=== PATIENT | male | born 1995 | race African-American/Black ===

== ENCOUNTER 2019-02-09 23:40 | Emergency (ER) | payer SELFPAY ==
[2019-02-09 23:49] VITALS: BP 137/78; PULSE 86; TEMP 98.7; BMI 27.1
[2019-02-10] MEDS ORDERED: DIPHTH,PERTUSS(ACELL),TET 0.5 ML DISP.SYRIN IM ONE ×2 (01:23→02:03)
--- NOTE | 2019-02-10 01:23 | PDOC ---
History of Present Illness - General Chief Complaint: Laceration Stated Complaint: EYE LACERATION Time Seen by Provider: 02/10/19 01:20 History Source: Patient - History of Present Illness Initial Comments: 02/10/19 01:20 23 year old male s/p laceration to left side of face proximal to the left eye lid. denies headache loc, nausea, vomiting, vision changes. last tetanus unknown 02/10/19 01:22 Past History - Past Medical History Allergies/Adverse Reactions: Allergies Allergy/AdvReac Type Severity Reaction Status Date / Time No Known Allergies Allergy Verified 02/10/19 02:12 COPD: Yes - Suicide/Smoking/Psychosocial Hx Smoking History: Unknown if ever smoked Review of Systems - Review of Systems Able to Perform ROS?: Yes Is the patient limited Uzbek proficient: No *Physical Exam - Vital Signs Last Vital Signs Temp Pulse Resp BP Pulse Ox 98.7 F 86 20 137/78 98 02/09/19 23:45 02/09/19 23:45 02/09/19 23:45 02/09/19 23:45 02/09/19 23:45 - Physical Exam General Appearance: Yes: Appropriately Dressed HEENT: positive: Other (1 cm laceration to left side of fACE PROXIMAL TO LEFT EYEBROW) Procedures - Consent Consent obtained: Verbal - Laceration/Wound Repair Left Face Wound Length: to 2.5 cm Wound Explored: clean Wound's Depth, Shape: irregular Irrigated w/ Saline: Yes Betadine Prep: Yes Anesthesia: 1% Lidocaine Amount of Anesthetic (ccs): 2 Wound Debrided: minimal Wound Repaired With: Sutures Suture Size/Type: 6:0 Number of Sutures: 4 Layer Closure: No Sterile Dressing Applied: Yes (bacitracin and sterile dressing applied) Progress Note - Progress Note Progress Note: A: facial laceration P; see procedure note boostrix *DC/Admit/Observation/Transfer Diagnosis at time of Disposition: Laceration of face without complication Qualifiers: Encounter type: initial encounter Qualified Code(s): S01.81XA - Laceration without foreign body of other part of head, initial encounter - Discharge Dispostion Disposition: HOME - Referrals Referrals: Hiram Perrin MD [Primary Care Provider] - - Patient Instructions Printed Discharge Instructions: DI for Laceration Repair Additional Instructions: Keep area clean dry and intact Keep dressing on until tomorrow If any increased bleeding through the dressing return immediately to emergency department Keep area clean dry and intact bacitracin x3 days, then let it dry out Please return in 5 days for suture removal. Please return immediately to emergency department with any increased redness, swelling, signs of infection - Post Discharge Activity Forms/Work/School Notes: Back to Work
--- NOTE | 2019-02-10 01:25 | PDOC ---
*Physical Exam - Vital Signs Last Vital Signs Temp Pulse Resp BP Pulse Ox 98.7 F 86 20 137/78 98 02/09/19 23:45 02/09/19 23:45 02/09/19 23:45 02/09/19 23:45 02/09/19 23:45 Medical Decision Making - Medical Decision Making 02/10/19 01:25 Patient seen by the advanced practice provider under my direct supervision. Ancillary testing reviewed as necessary. I agree with plan as outlined by the advanced practice provider. *DC/Admit/Observation/Transfer Diagnosis at time of Disposition: Laceration of face without complication Qualifiers: Encounter type: initial encounter Qualified Code(s): S01.81XA - Laceration without foreign body of other part of head, initial encounter - Discharge Dispostion Disposition: HOME Condition at time of disposition: Stable - Referrals Referrals: Hiram Perrin MD [Primary Care Provider] - - Patient Instructions Printed Discharge Instructions: DI for Laceration Repair Additional Instructions: Keep area clean dry and intact Keep dressing on until tomorrow If any increased bleeding through the dressing return immediately to emergency department Keep area clean dry and intact bacitracin x3 days, then let it dry out Please return in 5 days for suture removal. Please return immediately to emergency department with any increased redness, swelling, signs of infection - Post Discharge Activity Forms/Work/School Notes: Back to Work
== END 2019-02-10 02:28 | disposition home or self-care (01) ==
LOC: JER 23:40
PROC: 3E0234Z Introduction of Serum, Toxoid and Vaccine into Muscle, Percutaneous Approach (ICD-10-PCS; principal; 2019-02-09)
PROC: 0HQ1XZZ Repair Face Skin, External Approach (ICD-10-PCS; 2019-02-09)
DX: S01.112A Laceration without foreign body of left eyelid and periocular area, initial encounter (principal); W22.8XXA Striking against or struck by other objects, initial encounter; Y93.89 Activity, other specified; Y92.89 Other specified places as the place of occurrence of the external cause; Y99.8 Other external cause status
CPT/HCPCS: 12011-25; 90471; 90715; 99281-25

== ENCOUNTER 2019-02-14 16:05 | Emergency (ER) | payer SELFPAY ==
[2019-02-14 16:52] VITALS: BP 122/64; PULSE 66; TEMP 98.1; BMI 63.2
--- NOTE | 2019-02-14 17:01 | PDOC ---
Suture Removal/Wound Check HPI - History of Present Illness Chief Complaint: Suture/Staple Removal(Here) Stated Complaint: STICHES REMOVED Time Seen by Provider: 02/14/19 16:49 History Source: Yes: Patient Exam Limitations: Yes: No Limitations [facility] - Previous ED Treatment Type of procedure performed on last visit: Yes: Laceration Repair Antibiotics Prescribed: No Past History - Travel Traveled outside of the country in the last 30 days: No Close contact w/someone who was outside of country & ill: No - Past Medical History Allergies/Adverse Reactions: Allergies Allergy/AdvReac Type Severity Reaction Status Date / Time No Known Allergies Allergy Verified 02/10/19 02:12 COPD: Yes - Suicide/Smoking/Psychosocial Hx Smoking History: Unknown if ever smoked Suture Removal/Wound Check PE - Physical Exam Laceration/Wound Check Symptoms: reports: None Current Severity Level: None Maximum Severity Level: None *Review of Systems - Review of Systems Able to Perform ROS?: Yes Constitutional: Yes: See HPI. No: Symptoms Reported, Fever HEENTM: No: Symptoms Reported Integumentary: Yes: Symptoms Reported, See HPI All Other Systems: Reviewed and Negative *Physical Exam - Physical Exam General Appearance: Yes: Nourished, Appropriately Dressed, Apparent Distress, Mild Distress HEENT: positive: JACEK, Normal ENT Inspection, TMs Normal, Pharynx Normal, Other (4 sutures removed from left lateral brow, Y-shaped laceration poorly approximated. Has healing ecchymoses around orbit without crepitus or step-offs. ) Neck: positive: Supple. negative: Tender Integumentary: positive: Dry, Warm, Pale Neurologic: positive: sodder II-XII NML intact, Fully Oriented, Alert, Normal Mood/ Affect, Normal Response, Motor Strength 5/5 *DC/Admit/Observation/Transfer Diagnosis at time of Disposition: Visit for suture removal - Discharge Dispostion Disposition: HOME Condition at time of disposition: Stable Decision to Admit order: No - Referrals - Patient Instructions Printed Discharge Instructions: DI for Suture Removal - Post Discharge Activity
== END 2019-02-14 17:12 | disposition home or self-care (01) ==
LOC: JER 16:05 → JERFT 16:05
DX: Z48.817 Encounter for surgical aftercare following surgery on the skin and subcutaneous tissue (principal); Z48.02 Encounter for removal of sutures
CPT/HCPCS: 99281-25